=== PATIENT | male | born 1965 | race Caucasian/White ===

== ENCOUNTER 2016-04-27 20:15 | Emergency (ER) | payer OTHER ==
[2016-04-27] MEDS ORDERED: ACYCLOVIR 400 MG PREPACK#4 BTL TAKEHOME ONE (20:40)
--- NOTE | 2016-04-27 20:40 | UCPHY ---
H & P Time Seen by Provider: 04/27/16 20:25 Patient Type: New HPI/ROS: 51-year-old male presents complaining of rash to his left thigh and left groin and left buttock of a few days duration, also pruritic. No fevers or chills Review of systems As per HPI General no fever no chills no weakness HEENT no eye pain no eye discharge. No eye redness, no sore throat Respiratory no cough, no shortness of breath Cardiac no chest pain, no peripheral edema GI no abdominal pain, no diarrhea, no constipation, no nausea, no vomiting no flank pain, no hematuria, no dysuria Musculoskeletal no myalgias, no joint pain Heme no easy bruising, no easy bleeding Endo no polyuria, no polydipsia Skin positive rashes, positive pruritus Neuro no syncope, no dizziness, no headaches Psych is no suicidal ideation, no homicidal ideation Past Medical/Surgical History: Gout, hyperlipidemia Social History: Alcohol socially, denies drug use Smoking Status: Never smoked Physical Exam: Alert and oriented in no acute distress nontoxic appearance, afebrile Atraumatic normocephalic Neck no JVD Lungs clear to auscultation, no respiratory distress Heart regular rate and rhythm Extremities no cyanosis clubbing edema Skin-left leg erythematous macular rash, some areas with healing vesicles, no drainage no purulent drainage no lymphangitic streaks Located on left anterior thigh, left buttock and left groin Constitutional: Initial Vital Signs Temperature (C) 37.0 C 04/27/16 20:35 Heart Rate 86 04/27/16 20:35 Respiratory Rate 16 04/27/16 20:35 Blood Pressure 139/94 H 04/27/16 20:35 O2 Sat (%) 94 04/27/16 20:35 O2 Delivery Mode Room Air Allergies/Adverse Reactions: No Known Allergies Allergy (Verified 04/27/16 20:26) Home Medications: Medication Instructions Recorded ALLOPURINOL [ALLOPURINOL 300 mg] 300 mg PO 04/29/09 Atorvastatin Calcium [Lipitor 10 20 mg PO DAILY 04/29/09 mg] Cetirizine [ZyrTEC 10 mg (RX)] 07/03/12 Hydrocodone/Acetaminophen [[place] 1 - 2 tab PO Q6H PRN #20 tab 04/27/16 5/325 (*)] Other Htn Med 04/27/16 Valacyclovir HCl [Valtrex] 1,000 mg PO TID #21 tab 04/27/16 Medical Decision Making ED Course/Re-evaluation: Patient seen and evaluated for unilateral rash of several days duration Impression Shingles Plan Valacyclovir three times daily x7 days Rx for [place] For tonight and given acyclovir take 800 mg now an 800 mg at bedtime Follow up with PCP - Data Points Medications Given: Discontinued Medications Acyclovir (Zovirax 400 Mg Prepack #4) 1 btl TAKEHOME EDNOW ONE Stop: 04/27/16 20:41 Last Admin: 04/27/16 20:47 Dose: 1 btl Departure - Departure Disposition: Home, Routine, Self-Care Clinical Impression: Shingles Condition: Good Instructions: Shingles (ED) Referrals: Tulio Flores MD [Primary Care Provider] - As per Instructions Prescriptions: Hydrocodone/Acetaminophen [[place] 5/325 (*)] 1 - 2 tab PO Q6H PRN #20 tab PRN Reason: Pain, Moderate Valacyclovir HCl [Valtrex] 1,000 mg PO TID #21 tab - PQRS PQRS Measurement: na
[2016-04-27 20:45] VITALS: BP 139/94; PULSE 86; RESP 16; TEMP 98.6; O2SAT 94
== END 2016-04-27 20:50 | disposition home or self-care (01) ==
LOC: CED 20:15
DX: B02.9 Zoster without complications (principal)
CPT/HCPCS: G0463-PO

== ENCOUNTER → 2017-07-19 | Outpatient (CLI) | payer OTHER | LOC: CIMAGING 17:49 | PROVIDERS: ATTEND Internal Medicine | DX: R19.09 Other intra-abdominal and pelvic swelling, mass and lump (principal) | CPT/HCPCS: 76882-PO ==